=== PATIENT | female | born 1945 | race Caucasian/White ===

== ENCOUNTER → 2024-02-03 14:18 | Outpatient (REF) | payer MEDICARE, OTHER, SELFPAY | LOC: HWRAD 14:18 | PROVIDERS: ATTENDING PHYSICIAN Internal Medicine Critical Care Medicine; FAMILY PHYSICIAN Internal Medicine | DX: R91.8 Other nonspecific abnormal finding of lung field (principal) | CPT/HCPCS: 71250 ==

== ENCOUNTER → 2024-03-22 08:28 | Outpatient (REF) | payer MEDICARE, OTHER, SELFPAY | LOC: RAD 08:28 | PROVIDERS: ATTENDING PHYSICIAN Internal Medicine Cardiovascular Disease; FAMILY PHYSICIAN Internal Medicine | DX: I73.9 Peripheral vascular disease, unspecified (principal) | CPT/HCPCS: 93922 ==

== ENCOUNTER → 2024-06-04 19:44 | Outpatient (REF) | payer MEDICARE, OTHER, SELFPAY | LOC: MRI 19:44 | PROVIDERS: ATTENDING PHYSICIAN Physician Assistant Medical; PRIMARYCARE PHYSICIAN Internal Medicine | DX: M48.02 Spinal stenosis, cervical region (principal); M48.062 Spinal stenosis, lumbar region with neurogenic claudication | CPT/HCPCS: 72141; 72148 ==

== ENCOUNTER → 2024-06-07 08:24 | Outpatient (REF) | payer MEDICARE, OTHER, SELFPAY | LOC: MRI 08:24 | PROVIDERS: ATTENDING PHYSICIAN Physician Assistant Medical; PRIMARYCARE PHYSICIAN Internal Medicine | DX: M48.04 Spinal stenosis, thoracic region (principal) | CPT/HCPCS: 72146 ==

== ENCOUNTER → 2024-08-24 14:27 | Outpatient (REF) | payer MEDICARE, OTHER, SELFPAY | LOC: HWRAD 14:27 | PROVIDERS: ATTENDING PHYSICIAN Nurse Practitioner Adult Health; FAMILY PHYSICIAN Internal Medicine | DX: R91.8 Other nonspecific abnormal finding of lung field (principal); J18.9 Pneumonia, unspecified organism | CPT/HCPCS: 71250 ==

== ENCOUNTER → 2024-09-03 10:35 | Outpatient (REF) | payer MEDICARE, OTHER, SELFPAY ==
[2024-09-03 15:33] LABS: % Basophils 1.3 % (0-2); % Eosinophils 3.3 % (0-6); % Immature Granulocytes 0.3 % (0-0.5); % Lymphocytes 28.6 % (20.5-51.1); % Monocytes 9.3 % (1.7-9.3); % Neutrophils 57.2 % (42.2-75.2); Absolute Basophils 0.1 10^3/uL (0-0.2); Absolute Eosinophils 0.1 10^3/uL (0-0.7); Absolute Lymphocytes 1.1 10^3/uL (1.2-3.4); Absolute Monocytes 0.4 10^3/uL (0.1-0.6); Absolute Neutrophils 2.3 10^3/uL (1.4-6.5); Hematocrit 38.4 % (37.0-47.0); Hemoglobin 12.7 g/dL (12.0-16.0); Mean Corp Hgb Conc. 33.1 g/dL (33.0-37.0); Mean Corpuscular Hgb 31.2 pg (27.0-31.0); Mean Corpuscular Volume 94.3 fL (81.0-99.0); Mean Platelet Volume 9.1 fL (7.4-10.4); Nucleated Red Blood Cells % 0 %; Platelet Count 219 10^3/uL (130-400); Red Blood Cell Count 4.07 10^6/uL (4.20-5.40)
[2024-09-03 15:49] LABS: ALT (SGPT) 21 U/L (0-35); AST (SGOT) 18 U/L (14-36); Albumin 3.9 g/dl (3.5-5.0); Alkaline Phosphatase 80 U/L (38-126); Blood Urea Nitrogen 16 mg/dl (7-17); Calcium 8.8 mg/dl (8.4-10.2); Carbon Dioxide 26 mmol/L (22-30); Chloride 106 mmol/L (98-107); Glucose 95 mg/dl (70-99); HDL Cholesterol 68 mg/dl; LDL Cholesterol, Calculated 116 mg/dl; Sodium 140 mmol/L (135-145); Total Bilirubin 0.3 mg/dl (0.2-1.3); Total Cholesterol 208 mg/dl (50-199); Total Protein 6.2 g/dl (6.3-8.2); Triglyceride 122 mg/dl (10-149); Very Low Density Lipoprotein 24 mg/dl (0-30); eGFR > 60.00
[2024-09-03 16:00] LABS: Free T4 0.91 ng/dl (0.78-2.19); Total Thyroxine 7.49 ug/dl (5.5-11.0)
[2024-09-03 16:13] LABS: TSH 2.02 uIU/ml (0.47-4.68)
[2024-09-04 11:39] LABS: Glycohemoglobin (HgbA1c) 5.8 % (4.0-5.6)
[2024-09-06 02:58] LABS: Fructosamine 202 umol/L (205-285)
== END ==
LOC: HWRCS 10:35
PROVIDERS: ATTENDING PHYSICIAN Internal Medicine Cardiovascular Disease; FAMILY PHYSICIAN Internal Medicine; REFERRING PHYSICIAN Registered Nurse
DX: Z01.810 Encounter for preprocedural cardiovascular examination (principal); R73.02 Impaired glucose tolerance (oral); E78.2 Mixed hyperlipidemia; E89.0 Postprocedural hypothyroidism
CPT/HCPCS: 36415; 78452; 80053; 80061; 82985; 83036; 84436; 84439; 84443; 85025; 93017; A9500; J2785

== ENCOUNTER 2024-11-03 05:59 | Inpatient (IN) | payer MEDICARE, OTHER, SELFPAY ==
[2024-10-19 11:19] LABS: Hematocrit 37.7 % (37.0-47.0); Hemoglobin 12.8 g/dL (12.0-16.0); Mean Corpuscular Volume 91.3 fL (81.0-99.0); Mean Platelet Volume 9.1 fL (7.4-10.4); Platelet Count 266 10^3/uL (130-400); Red Blood Cell Count 4.13 10^6/uL (4.20-5.40); Red Cell Dist. Width 12.5 % (11.5-14.5); White Blood Cell Count 4.6 10^3/uL (4.8-10.8)
[2024-10-19 11:41] LABS: ALT (SGPT) 20 U/L (0-35); AST (SGOT) 20 U/L (14-36); Albumin 4.8 g/dl (3.5-5.0); Alkaline Phosphatase 98 U/L (38-126); Blood Urea Nitrogen 17 mg/dl (7-17); Calcium 9.8 mg/dl (8.4-10.2); Carbon Dioxide 22 mmol/L (22-30); Chloride 104 mmol/L (98-107); Glucose 101 mg/dl (70-99); Potassium 4.2 mmol/L (3.5-5.1); Sodium 139 mmol/L (135-145); Total Bilirubin 0.6 mg/dl (0.2-1.3); eGFR > 60.00
[2024-10-19 14:21] VITALS: BMI 39.2
--- NOTE | 2024-10-20 15:29 | PTCARENOTE ---
Abn ECG, Dr. Pak made aware, no new interventions requested.
[2024-10-27 11:46] VITALS: BMI 39.2
[2024-11-03] VITALS (18 sets, daily range): BP systolic 103–153; BP diastolic 52–68; PULSE 2–79; O2SAT 94; BMI 39.2
[2024-11-03] MEDS: NORMOSOL-R/PLASMALYTE-A 1000 IV ×3 (06:49→20:30)
[2024-11-03] MEDS: LYRICA 150 MG PO (06:49)
[2024-11-03] MEDS: CELEBREX 200 MG PO (06:49)
[2024-11-03] MEDS: TYLENOL 1000 MG PO ×3 (06:49→22:41)
[2024-11-03] MEDS: METHOCARBAMOL 1500 MG PO (06:54)
--- NOTE | 2024-11-03 07:42 | W.PN.UPDATE ---
Update Note
Progress Note Update
Cervical arthritis w/ myelopathy s/p C3-C6 ACDF w/ Noonan 11/03/24
DVT prophylaxis - b/l SCDs/TEDS
HTN - + parameters - monitor BP
Non-obstructive CAD
Remote OR (20 y/a) 2* endothelial dysfunction
- Resume ASA POD 5 if hemodynamically stable
Asthma, mild and intermittent
Restrictive lung disease
Pulm nodules
JACOBY � compliant w/ CPAP (avg pressure 14)
- Monitor O2
- Resume inhalers
- Resume CPAP HS
- IS
GERD and Hiatal hernia - continue PPI therapy
HLD, statin intolerant
RBBB
1st degree AV block
PAD
Mild AR
Palpitations
Recurrent diverticulitis
IBS
OA
Raynaud�s
Chronic fatigue 2* ?SLE, work-up ongoing
Hypothyroidism
ADHD
Anxiety
Prediabetes, A1c� 5.8 09/03/24
Obesity, BMI 39.2
[2024-11-03] MEDS: DILAUDID 0.5 MG IV (09:17)
[2024-11-03] MEDS: DILAUDID 0.25 MG IV (10:21)
--- NOTE | 2024-11-03 14:27 | PTCARENOTE ---
1508 patient arrived to unit. AAOx3 reports no discomfort at this time. Cervical collar in place. Cervical Spine Precautions in place.
[2024-11-03] MEDS: ZETIA 10 MG PO (15:13)
[2024-11-03] MEDS: VITAMIN D3 (cholecalciferol) 50 MCG PO (15:13)
[2024-11-03] MEDS: PROTONIX 40 MG PO (15:13)
[2024-11-03] MEDS: PULMICORT INH (15:18)
[2024-11-03] MEDS: ANCEF 5 IV ×2 (16:03→22:42)
[2024-11-03] MEDS: PULMICORT 0.5 MG INH (19:58)
[2024-11-03] MEDS: COLACE 100 MG PO (20:31)
[2024-11-03] MEDS: ZOLOFT 100 MG PO (20:32)
[2024-11-03] MEDS: LYRICA 75 MG PO (20:32)
[2024-11-03] MEDS: ROXICODONE 5 MG PO (20:33)
[2024-11-03] MEDS: SENOKOT 17.2 MG PO (20:33)
[2024-11-04] MEDS: ROXICODONE 5 MG PO ×2 (01:06→05:13)
[2024-11-04 03:24] VITALS: BP 103/58
[2024-11-04] MEDS: SYNTHROID 25 MCG PO (05:13)
[2024-11-04] MEDS: TYLENOL 1000 MG PO ×2 (05:13→11:33)
[2024-11-04 07:05] VITALS: BP 125/55
[2024-11-04] MEDS: SENOKOT 17.2 MG PO (07:20)
[2024-11-04] MEDS: VITAMIN D3 (cholecalciferol) 50 MCG PO (07:21)
[2024-11-04] MEDS: LYRICA 75 MG PO (07:21)
[2024-11-04] MEDS: ZETIA 10 MG PO (07:21)
[2024-11-04] MEDS: PROTONIX 40 MG PO (07:21)
[2024-11-04] MEDS: COLACE 100 MG PO (07:21)
[2024-11-04 07:42] LABS: Hematocrit 32.1 % (37.0-47.0)
--- NOTE | 2024-11-04 07:59 | W.DS.TRANS ---
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
-
Discharge Instructions:
Discharge Diagnosis/Procedures Cervical arthritis w/ myelopathy s/p C3-C6 ACDF
w/ Dr Noonan 11/03/24
Diet Regular
Activity As tolerated
Additional Activity No heavy lifting >12 lbs
Driving Restrictions Not until seen by your Dr
Bathing Restrictions OK to shower in 4 days.
Instructions:
Stand-Alone Forms: [facility] Cervical D/C Inst.
Changes to Home Medications: No
Discharge Medications:
DC Medications w/original date entered in [facility]
Calm /Magnesium 1 unit PO HS PRN gi issues 10/27/24
Co Q-10 1 cap PO DAILY 10/27/24
Dairy Relief 1 cap PO PRN PRN dairy sensitivity 10/27/24
Fish Oil 1 cap PO DAILY 10/27/24
Vitamin Code For Women 1 cap PO DAILY 10/27/24
acetaminophen 500 mg capsule 1,000 mg PO Q6H PRN pain 10/27/24
albuterol sulfate 90 mcg/actuation breath activated powder inhaler 2 inh inhalation Q4H PRN asthma 10/27/24
alprazolam 0.5 mg tablet (Xanax) 0.5 - 1 mg PO HS PRN anxiety 10/27/24
amlodipine 5 mg tablet 5 mg PO DAILY Blood Pressure 10/27/24
aspirin 81 mg tablet,delayed release 81 mg PO DAILY Anti-Inflammatory 10/27/24
budesonide 0.5 mg/2 mL suspension for nebulization 0.5 mg inhalation BID Lung/Breathing Issues 10/27/24
cholecalciferol (vitamin D3) 50 mcg (2,000 unit) capsule (Vitamin D3) 50 mcg PO DAILY Supplement 10/27/24
cranberry 1 tab PO DAILY 10/27/24
dicyclomine 10 mg capsule 10 mg PO PRN PRN IBS 10/27/24
ezetimibe 10 mg tablet 10 mg PO DAILY 10/27/24
fluconazole 150 mg tablet 150 mg PO DAILY x 10 days for yeast 10/27/24
fluticasone propionate 50 mcg/actuation nasal spray,suspension 1 spray intranasal BID 10/27/24
hydrocortisone 2.5 % topical cream 1 applic topical BID PRN skin issue 10/27/24
ibuprofen 600 mg tablet 600 - 800 mg PO Q6H PRN pain 10/27/24
ipratropium 0.5 mg-albuterol 3 mg (2.5 mg base)/3 mL nebulization soln 3 ml inhalation Q4H PRN asthma 10/27/24
levothyroxine 25 mcg tablet 25 mcg PO DAILY 10/27/24
nystatin 100,000 unit/gram topical cream 1 applic topical PRN PRN yeast in skin folds 10/27/24
omeprazole 20 mg tablet,delayed release 20 mg PO DAILY 10/27/24
oxymetazoline 0.05 % nasal spray (Afrin Sinus (oxymetazoline)) 1 spray intranasal ONCE PRN congestion 10/27/24
psyllium 1 packet PO PRN PRN constipation 10/27/24
saliva substitute combo no.9 (Biotene Dry Mouth Oral Rinse mouthwash) 15 ml mucous membrane BID PRN dry mouth 10/27/24
sertraline 100 mg tablet (Zoloft) 100 mg PO DAILY 10/27/24
turmeric 1 cap PO DAILY 10/27/24
vit [id number] 500 mg-50 mg-25 mg-40 mg tablet (Bioflex) 1 tab PO DAILY 10/27/24
vitamin B complex 1 cap PO DAILY 10/27/24
oxycodone 5 mg tablet 5 - 10 mg (1 - 2 x 5 mg) PO Q6H PRN moderate-severe pain #30 tabs 11/03/24
pregabalin 75 mg capsule 75 mg PO Q12H neuropathic pain #15 caps 11/03/24
Home Medication Changes
Pending Results: No
--- NOTE | 2024-11-04 08:00 | W.PN.SP ---
Today's Communication / Plan
-
s/p acdf
Doing well
PT
D/c
Subjective / Objective
Subjective Data
Pt doing well
Feels better
Denies weakness
Objective Data
Vital Signs
Temp Pulse Resp BP Pulse Ox
98.2 F 64 16 125/55 92
11/04/24 07:05 11/04/24 07:21 11/04/24 07:05 11/04/24 07:21 11/04/24 07:05
Intake and Output
11/03/24 11/04/24 11/05/24
06:59 06:59 06:59
Intake Total 2280 / 2280
Balance 2280 / 2280
Intake:
Oral fluids 480 / 480
IV fluids (Total) 1800 / 1800
normosol 300 / 300
Other:
How many times incontinent 3
MODERATE amount urine
Lab Data
11/04/24 06:52
[2024-11-04 08:21] LABS: Blood Urea Nitrogen 12 mg/dl (7-17); Calcium 8.8 mg/dl (8.4-10.2); Carbon Dioxide 30 mmol/L (22-30); Chloride 103 mmol/L (98-107); Estimated Creatinine Clearance 85 ml/min; Glucose 106 mg/dl (70-99); Potassium 4.2 mmol/L (3.5-5.1); Sodium 139 mmol/L (135-145); eGFR > 60.00
[2024-11-04] MEDS: PULMICORT 0.5 MG INH (08:23)
--- NOTE | 2024-11-04 09:06 | W.PN.ORTHO ---
Today's Communication / Plan
-
Await PT and OT recs.
D/c later today if remaining clinically stable.
Assessment
.
Distal Motor Intact: Yes
Dressing:
Clean, dry and intact.
Assessment:
Cervical arthritis w/ myelopathy s/p C3-C6 ACDF w/ Noon[facility] 11/03/24
DVT prophylaxis - b/l SCDs/TEDS
Mild post-op congestion - pt requesting Mucinex which she takes at home - can continue [id number] upon d/c
HTN - + parameters - BPs overall stable
Non-obstructive CAD
Remote CO (20 y/a) 2* endothelial dysfunction
- Resume ASA POD 5 since hemodynamically stable
Asthma, mild and intermittent
Restrictive lung disease
Pulm nodules
JACOBY � compliant w/ CPAP (avg pressure 14)
- O2 stable on RA
- Resumed inhalers
- Resumed CPAP HS
- IS
GERD and Hiatal hernia - continue PPI therapy
HLD, statin intolerant
RBBB
First degree AV block
PAD
Mild AR
Palpitations
Recurrent diverticulitis
IBS
OA
Raynaud�s
Chronic fatigue 2* ?SLE, work-up ongoing
Hypothyroidism
ADHD
Anxiety
Prediabetes, A1c� 5.8 09/03/24
Obesity, BMI 39.2
Plan
.
Surgery / Date: C3-C6 ACDF w/ Noonan 11/03/24
DVT Prophylaxis: Other (b/l SCDs/TEDS)
Activity:
Out of bed.
PT/OT
Discharge Plan: Home
Subjective
.
.:
Patient resting comfortably in her chair.
Neck pain overall well tolerated w/ current pain meds.
Mild congestion this AM; otherwise no new complaints. Lungs CTA.
AM labs stable.
Eager for potential d/c today.
Vital Signs and Labs
.
Vital Signs and Labs:
Lab Results
11/04/24 06:52
11/04/24 06:52
Temp Pulse Resp BP Pulse Ox
98.2 F 64 16 125/55 92
11/04/24 07:05 11/04/24 07:21 11/04/24 07:05 11/04/24 07:21 11/04/24 07:05
Physical Exam
-
HEENT: No pallor, cyanosis, or jaundice. Throat clear.
NECK: + Cervical collar. Supple.
RESPIRATORY: Lungs clear to auscultation.
CVS: S1, S2 normal. RRR.�
ABDOMEN: Soft, non-tender. No distension. Obese.
EXTREMITIES: Strength equal, no calf pain with palpation/dorsiflexion. Calves soft.
REGULATORY AFFAIRS SPEC: AOx3. No focal deficits. 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
[2024-11-04 09:15] VITALS: BP 111/51; BP 132/63; PULSE 64; PULSE 73; O2SAT 94
[2024-11-04] MEDS: NORMOSOL-R/PLASMALYTE-A IV (09:23)
--- NOTE | 2024-11-04 09:51 | W.DS.TRANS ---
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
-
Discharge Instructions:
Discharge Diagnosis/Procedures Cervical arthritis w/ myelopathy s/p C3-C6 ACDF
w/ Dr Noonan 11/03/24
Diet Regular
Activity As tolerated,With Walker
Additional Activity No heavy lifting >10 lbs
Driving Restrictions Not until seen by your Dr
Bathing Restrictions OK to shower in 4 days.
Instructions:
Stand-Alone Forms: [facility] Cervical D/C Inst.
Changes to Home Medications: Yes
Discharge Medications:
DC Medications w/original date entered in [facility]
Calm /Magnesium 1 unit PO HS PRN gi issues 10/27/24
Co Q-10 1 cap PO DAILY 10/27/24
Dairy Relief 1 cap PO PRN PRN dairy sensitivity 10/27/24
Fish Oil 1 cap PO DAILY 10/27/24
Vitamin Code For Women 1 cap PO DAILY 10/27/24
albuterol sulfate 90 mcg/actuation breath activated powder inhaler 2 inh inhalation Q4H PRN asthma 10/27/24
aspirin 81 mg tablet,delayed release 81 mg PO DAILY Anti-Inflammatory 10/27/24
budesonide 0.5 mg/2 mL suspension for nebulization 0.5 mg inhalation BID Lung/Breathing Issues 10/27/24
cholecalciferol (vitamin D3) 50 mcg (2,000 unit) capsule (Vitamin D3) 50 mcg PO DAILY Supplement 10/27/24
cranberry 1 tab PO DAILY 10/27/24
ezetimibe 10 mg tablet 10 mg PO DAILY 10/27/24
fluticasone propionate 50 mcg/actuation nasal spray,suspension 1 spray intranasal BID 10/27/24
hydrocortisone 2.5 % topical cream 1 applic topical BID PRN skin issue 10/27/24
ipratropium 0.5 mg-albuterol 3 mg (2.5 mg base)/3 mL nebulization soln 3 ml inhalation Q4H PRN asthma 10/27/24
levothyroxine 25 mcg tablet 25 mcg PO DAILY 10/27/24
omeprazole 20 mg tablet,delayed release 20 mg PO DAILY 10/27/24
saliva substitute combo no.9 (Biotene Dry Mouth Oral Rinse mouthwash) 15 ml mucous membrane BID PRN dry mouth 10/27/24
sertraline 100 mg tablet (Zoloft) 100 mg PO DAILY 10/27/24
turmeric 1 cap PO DAILY 10/27/24
vit [id number] 500 mg-50 mg-25 mg-40 mg tablet (Bioflex) 1 tab PO DAILY 10/27/24
vitamin B complex 1 cap PO DAILY 10/27/24
Saccharomyces boulardii 250 mg capsule (Florastor) 250 mg PO BID #10 caps 11/03/24
acetaminophen 500 mg capsule 1,000 mg (2 x 500 mg) PO Q6H pain #0 caps 11/03/24
alprazolam 0.5 mg tablet (Xanax) 0.5 - 1 mg (1 - 2 x 0.5 mg) PO HS PRN anxiety #0 tabs 11/03/24
amlodipine 5 mg tablet 5 mg PO DAILY #1 tab 11/03/24
cephalexin 500 mg capsule 500 mg PO Q6H #20 caps 11/03/24
dicyclomine 10 mg capsule 10 mg PO TIDPRN PRN IBS #1 cap 11/03/24
docusate sodium 100 mg capsule 100 mg PO BID #30 caps 11/03/24
ondansetron HCl 4 mg tablet 4 mg PO Q6H PRN nausea and vomiting #30 tabs 11/03/24
oxycodone 5 mg tablet 5 - 10 mg (1 - 2 x 5 mg) PO Q6H PRN moderate-severe pain #30 tabs 11/03/24
oxymetazoline 0.05 % nasal spray (Afrin (oxymetazoline)) 1 spray intranasal DAILYPRN PRN nasal congestion #15 mL 11/03/24
pregabalin 75 mg capsule 75 mg PO Q12H neuropathic pain #15 caps 11/03/24
psyllium 1 packet PO DAILYPRN PRN constipation #0 ea 11/03/24
sennosides 8.6 mg tablet (Cecily-joe) 17.2 mg (2 x 8.6 mg) PO BID #30 tabs 11/03/24
guaifenesin 600 mg tablet, extended release 12 hr (Mucinex) 600 mg PO Q12H PRN Congestion #30 tabs 11/04/24
Home Medication Changes
Saccharomyces boulardii 250 mg capsule (Florastor) 250 mg PO BID #10 caps 11/03/24
acetaminophen 500 mg capsule 1,000 mg (2 x 500 mg) PO Q6H pain #0 caps 11/03/24
cephalexin 500 mg capsule 500 mg PO Q6H #20 caps 11/03/24
docusate sodium 100 mg capsule 100 mg PO BID #30 caps 11/03/24
ondansetron HCl 4 mg tablet 4 mg PO Q6H PRN nausea and vomiting #30 tabs 11/03/24
oxycodone 5 mg tablet 5 - 10 mg (1 - 2 x 5 mg) PO Q6H PRN moderate-severe pain #30 tabs 11/03/24
pregabalin 75 mg capsule 75 mg PO Q12H neuropathic pain #15 caps 11/03/24
sennosides 8.6 mg tablet (Cecily-joe) 17.2 mg (2 x 8.6 mg) PO BID #30 tabs 11/03/24
guaifenesin 600 mg tablet, extended release 12 hr (Mucinex) 600 mg PO Q12H PRN Congestion #30 tabs 11/04/24
Pending Results: No
[2024-11-04] MEDS: MUCINEX 600 MG PO (09:52)
[2024-11-04 10:50] VITALS: BP 107/56
--- NOTE | 2024-11-04 11:00 | CM ---
Initial assessment completed
Pt lives in independent living at [facility]; ramp access
Independent at baseline, drives
DME - CPAP, nebulizer, rolling walker, single point cane
SNF/HH - denies past hx
Has ride at d/c - sister to transport
PCP - [facility]
Pharm - [facility]
Requesting VM for wound check - Requesting [facility]. [facility] aware - referral sent to [facility]
Given IMM
Plan - anticipate home with [facility]
f - [phone]
[2024-11-04 11:08] VITALS: BP 113/57
== END 2024-11-04 13:06 | disposition home health service (06) | DRG 473 ==
LOC: 2 SOUTH 05:59
PROVIDERS: Physician Assistant; ADMITTING PHYSICIAN Orthopaedic Surgery Orthopaedic Surgery of the Spine; FAMILY PHYSICIAN Internal Medicine
PROC: 0RG20A0 Fusion of 2 or more Cervical Vertebral Joints with Interbody Fusion Device, Anterior Approach, Anterior Column, Open Approach (ICD-10-PCS; 2024-11-03)
PROC: 0RB30ZZ Excision of Cervical Vertebral Disc, Open Approach (ICD-10-PCS; 2024-11-03)
PROC: 5A09357 Assistance with Respiratory Ventilation, Less than 24 Consecutive Hours, Continuous Positive Airway Pressure (ICD-10-PCS; 2024-11-03)
DX: M47.12 Other spondylosis with myelopathy, cervical region (principal); M48.02 Spinal stenosis, cervical region; I10 Essential (primary) hypertension; I25.10 Atherosclerotic heart disease of native coronary artery without angina pectoris; J45.20 Mild intermittent asthma, uncomplicated; J98.4 Other disorders of lung; G47.33 Obstructive sleep apnea (adult) (pediatric); I25.2 Old myocardial infarction; Z79.82 Long term (current) use of aspirin; E78.5 Hyperlipidemia, unspecified; K21.9 Gastro-esophageal reflux disease without esophagitis; I45.10 Unspecified right bundle-branch block; I44.0 Atrioventricular block, first degree; I73.9 Peripheral vascular disease, unspecified; K58.9 Irritable bowel syndrome, unspecified; E03.9 Hypothyroidism, unspecified; F90.9 Attention-deficit hyperactivity disorder, unspecified type; F41.9 Anxiety disorder, unspecified; E66.9 Obesity, unspecified; Z68.39 Body mass index [BMI] 39.0-39.9, adult; R73.03 Prediabetes
CPT/HCPCS: 36415; 72020; 80048; 80053; 85014; 85018; 85027; 87070; 93005; 94640; 94660; 97116; 97163; 97167; 97530; 97535

== ENCOUNTER → 2025-01-25 16:19 | Outpatient (REF) | payer MEDICARE, OTHER, SELFPAY | LOC: WDC 16:19 | PROVIDERS: ATTENDING PHYSICIAN Internal Medicine | DX: N64.4 Mastodynia (principal) | CPT/HCPCS: 77062; 77066 ==

== ENCOUNTER → 2025-05-17 13:40 | Outpatient (REF) | payer MEDICARE, OTHER, SELFPAY ==
[2025-05-17 16:26] LABS: Albumin 4.6 g/dl (3.5-5.0); Blood Urea Nitrogen 16 mg/dl (7-17); Calcium 9.5 mg/dl (8.4-10.2); Carbon Dioxide 25 mmol/L (22-30); Chloride 107 mmol/L (98-107); Glucose 91 mg/dl (70-99); Potassium 4.5 mmol/L (3.5-5.1); Sodium 139 mmol/L (135-145); eGFR > 60.00
== END ==
LOC: HWLAB 13:40
PROVIDERS: ATTENDING PHYSICIAN Internal Medicine Cardiovascular Disease; FAMILY PHYSICIAN Internal Medicine
DX: I10 Essential (primary) hypertension (principal)
CPT/HCPCS: 36415; 80069

== ENCOUNTER → 2025-06-15 13:04 | Outpatient (REF) | payer MEDICARE, OTHER, SELFPAY | LOC: RCS 13:04 | PROVIDERS: ATTENDING PHYSICIAN Internal Medicine Cardiovascular Disease; FAMILY PHYSICIAN Internal Medicine | DX: R00.2 Palpitations (principal) | CPT/HCPCS: 93225; 93226 ==